=== PATIENT | female | born 1940 | race Caucasian/White ===

== ENCOUNTER → 2018-12-11 | Outpatient (CLI) | payer MEDICARE, BC ==
[~2018-12-11] MED LIST: /WARF25TA OR; ACTO30TA OR; ALPH0.156 OU; ATOR1TAB21 PO; BENZ200C70 PO; CALCTAB93 PO; CEFD300CAP PO; CELEBREX PO; CLONIDINE PO; COUM2.5T17 PO; COZAAR PO; FERR325T PO; FURO20TA2 PO; GLYBPOW PO; INSULANT SC; KLOR10TA76 PO; LABE20TAB PO; LABETALOL; LEXA1TAB PO; LEXAPRO PO; LIPITOR PO; LOSA50TA88 PO; METF10004 PO; METFORMIN PO; MULT1TAB10 PO; MULTLIQ7 PO; NEXIUM PO; NORV5TAB PO; NOVOINJ3 SC; OMEP20CA3 PO; PERC5TAB8 OR; PERC7.5T8 OR; POTA10TA16 PO; TIMO0.5S42 OU; TRAMADOL PO; TRIAMTERENE PO; TYLE325T5 PO; VITA-112 PO; VITA10006 PO; [UNRECOGNIZED DRUG - OTHER] PO; [UNRECOGNIZED DRUG - OTHER] PO; januvia
--- NOTE | 2018-12-11 14:03 | REP ---
Chest two views HISTORY: preop Comparison: 09/07/2016 A calcified granuloma are present in the right lower lobe. The left lung is clear. The cardiac silhouette is enlarged. The pulmonary vasculature is normal in appearance. There are old right rib fractures. The bony structure is intact. IMPRESSION: Cardiomegaly. Electronically Signed by Gordon Chu MD 12/11/2018 01:55 P
[2018-12-11 14:10] LABS: HEMATOCRIT 35.9 % (36.0-47.0); HEMOGLOBIN 11.4 g/dl (12.0-15.5); MEAN CORPUSCULAR HEMOGLOBIN 28.4 pg (27.0-33.0); MEAN CORPUSCULAR HGB CONC 31.8 g/dl (32.0-36.5); MEAN CORPUSCULAR VOLUME 89.5 fl (80.0-96.0); PLATELET COUNT, AUTOMATED 336 10^3/uL (150-450); RED BLOOD COUNT 4.01 10^6/uL (4.00-5.40); WHITE BLOOD COUNT 11.6 10^3/uL (4.0-10.0)
[2018-12-11 14:17] LABS: INR 0.99; PROTHROMBIN TIME 13.2 SECONDS (12.1-14.4)
[2018-12-11 14:29] LABS: ERYTHROCYTE SEDIMENTATION RATE 25 mm/hr (0-30)
[2018-12-11 14:37] LABS: ALBUMIN 3.3 GM/DL (3.2-5.2); CALCIUM LEVEL 8.9 MG/DL (8.8-10.2); CREATININE FOR GFR 1.39 MG/DL (0.55-1.30); GLOMERULAR FILTRATION RATE 38.9 (>39); POTASSIUM SERUM 4.1 MEQ/L (3.5-5.1); TOTAL PROTEIN 6.5 GM/DL (6.4-8.2)
== END ==
LOC: M LAB 13:07
PROVIDERS: ATTEND Orthopaedic Surgery
DX: Z01.818 Encounter for other preprocedural examination (principal); M16.11 Unilateral primary osteoarthritis, right hip; I51.7 Cardiomegaly

== ENCOUNTER 2019-01-08 06:04 | Inpatient (IN) | payer MEDICARE, BC ==
[~2019-01-08] VITALS: Ht 160 cm; Wt 88.5 kg
[2019-01-08] VITALS (7 sets, daily range): BP systolic 152–183; BP diastolic 80–86
[2019-01-08] MEDS ORDERED: CLINDAMYCIN 900 MG/50 ML PREMIX BAG As Ordered ONE (06:16)
[2019-01-08] MEDS ORDERED: PROPOFOL 200 MG/20 ML VIAL As Ordered ONE ×2 (06:20→06:21)
[2019-01-08] MEDS ORDERED: fentaNYL 100 MCG/2 ML INJECTION (J3010) As Ordered ONE (06:20)
[2019-01-08] MEDS ORDERED: LIDOCAINE 2% INJ 100 MG/5 ML SDV (FOR ANES.) As Ordered ONE (06:21)
[2019-01-08] MEDS ORDERED: EPINEPHrine INJ 1 MG/ML 1ML AMP As Ordered ONE (06:41)
[2019-01-08] MEDS ORDERED: CLINDAMYCIN INJ 900MG/6ML VIAL As Ordered ONE (06:41)
[2019-01-08] MEDS ORDERED: TRANEXAMIC ACID 100 MG/ML 10ML VIAL As Ordered ONE (06:41)
[2019-01-08] MEDS ORDERED: LEVAINH (06:43)
[2019-01-08] MEDS ORDERED: LEVO500T3 (06:43)
[2019-01-08] MEDS ORDERED: CLINDAMYCIN 900 MG in APPROPRIATE DILUENT 1 EA IV ONE (07:00)
--- NOTE | 2019-01-08 08:02 | IPN ---
DATE: 01/08/2019 The patient seen and examined. She wishes to go ahead with a right total hip arthroplasty. She understands the nature of this, the risks of bleeding, infection, damage to nerves, vessels, persistent pain, wear loosening, dislocation, leg length inequality, blood clots, medical problems, , among others. Preop clearance was obtained.
[2019-01-08] MEDS ORDERED: BUPIVACAINE/DEXTROSE 0.75% 2 ML AMP As Ordered ONE (08:10)
[2019-01-08] MEDS ORDERED: FUROSEMIDE 20 MG TAB PO SCH (09:00)
[2019-01-08] MEDS ORDERED: FLEET ENEMA PR PRN (09:30)
[2019-01-08] MEDS ORDERED: fentaNYL 100 MCG/2 ML INJECTION (J3010) IV PRN (09:30)
[2019-01-08] MEDS ORDERED: ONDANSETRON 4MG/2ML VIAL (J2405) IV PRN (09:30)
[2019-01-08] MEDS ORDERED: LR 1,000 ML IV SCH ×2 (09:30→09:45)
[2019-01-08] MEDS ORDERED: HYDROMORPHONE HCL 0.5 MG/ 0.5 ML SYRINGE (J1170 PER 1) IV PRN (09:30)
[2019-01-08] MEDS ORDERED: PERCOCET 5MG/325MG TAB PO PRN (09:30)
[2019-01-08] MEDS ORDERED: MORPHINE 4 MG/ML 1ML VIAL/SYRINGE (J2270) IV PRN ×3 (09:45→10:00)
--- NOTE | 2019-01-08 10:31 | REP ---
AP LATERAL RIGHT HIP, TWO VIEWS: HISTORY: Postop. The patient is status post right total hip replacement. There is no acute fracture or dislocation. Subcutaneous air and surgical tami are present in the overlying soft tissue. IMPRESSION: The patient is status post right total hip replacement. There is anatomic alignment. Electronically Signed by Gordon Chu MD 01/08/2019 10:36 A
[2019-01-08] MEDS ORDERED: DEXTROSE 50% 50 ML SYRINGE IV PRN (11:00)
[2019-01-08] MEDS ORDERED: GLUCOSE 4 GM CHEW TABLET PO PRN (11:00)
[2019-01-08] MEDS ORDERED: GLUCAGON FOR INJ 1 MG VIAL (J1610) SC PRN (11:00)
--- NOTE | 2019-01-08 11:07 | CR.PDOC ---
General Date of Consultation: Jan 08, 2019 Referring Provider: Isaias James Attending Physician: LADI SHORE MD Consultation HOSPITALIST CONSULT REASON FOR CONSULTATION/CHIEF COMPLAINT: medical management s/p rt KARLO HISTORY OF PRESENT ILLNESS: This is an 78 yo M who underwent right total hip arthroplasty today, 01/08/19, and Hospitalist was consulted for post-op medical management. She has OA and elected to undergo this surgery. No known complications during the procedure. She is examined in the recovery area and has no complaints. ALLERGIES: Please see below. HOME MEDICATIONS: Please see below. PAST MEDICAL HISTORY: 1. HLD 2. IDDM2 3. HTN 4. GERD 5. Osteoarthritis 6. Depression PAST SURGICAL HISTORY: 1. Cholecystectomy. 2. Bilateral carpal tunnel release. 3. Knee replacements. 4. Left breast biopsy. 5. Trigger finger A1 tierra release. 6. Left & Right hip replacement. FAMILY HISTORY: noncontributory SOCIAL HISTORY: Tobacco use:denies ETOH: denies Illicit drug use: denies IV drug use: denies Lives at home with boyfriend REVIEW OF SYSTEMS: Constitutional: Denies fever, chills Eyes: Denies eye pain, vision change ENT: Denies headaches, ear pain, dysphagia Skin: Denies any rashes or lesions Pulmonary: Denies dyspnea, cough, wheezing Cardiac: Denies chest pain, palpitations GI: Denies nausea, vomiting, abdominal pain MSK: Denies other pains besides OA and from recent surgery Neurologic: Denies weakness, numbness/tingling PHYSICAL EXAMINATION: VITAL SIGNS: Please see below. General exam: Alert and cooperative, A&O 3, NAD, pleasantly conversant Eye exam: PERRLA, EOMI ENT: Atraumatic, normocephalic, mucus membranes moist, tongue midline, no pharyngeal edema Neck: Supple, no JVD Cardiac: RRR, normal S1 & S2, no murmurs Respiratory: CTAB, good air exchange, no wheezing, rhonchi, or rales Abdomen: hypoactive bowel sounds, soft, nontender, nondistended Extremity: 2+ radial pulses, no edema, clubbing, cyanosis, or tenderness Skin: [place], warm, dry, no visible rash or lesions, no jaundice. Rt hip region is bandaged from recent surgery Neuro: Strength in UE 5/5, limited motion in LE given recent surgery, sensation intact, normal speech Psych: Normal mood and affect LABORATORY DATA: Please see below. ASSESSMENT/PLAN: 1. S/P rt KARLO done 01/08/19. Pain management, activity, and DVT ppx as per surgery. Will place pt on fall precautions. 2. HLD-continue home statin 3. IDDM2- home metformin and insulins replaced with ISS. Recommend consistent carb diet once pt is tolerating intake. 4. HTN- continue home regimen: Cozaar and Lebatolol with hold parameters. Will hold Lasix as she is currently on fluids 5. GERD- controlled on home Omeprazole, which we will continue 6. Depression-stable, continue home Lexapro 7. Recent PNA-pt was started on Levaquin last Saturday by Urgent care, has 3 doses remaining. She is on Clindamycin already per Ortho, and will allow her to complete her 3 doses of Levaquin. Vital Signs/I&O Vital Signs Date Time Temp Pulse Resp B/P (MAP) Pulse Ox O2 Delivery O2 Flow Rate FiO2 01/08/19 10:04 73 20 158/67 (97) 92 Room Air 01/08/19 09:21 97 Laboratory Data Labs 24H Laboratory Tests 2 01/08/19 09:49: Bedside Glucose (Misc Panel) 179H CBC/BMP Laboratory Tests 01/08/19 06:17 Allergies Coded Allergies: Penicillins (Verified Allergy, Severe, SEVERE RASH, 03/04/13) Penicillins Cross Reactors (Verified Allergy, Severe, SEVERE RASH, 03/04/13) Sulfa Drugs (Verified Allergy, Intermediate, RASH, 03/04/13) Sulfa Drugs Cross Reactors (Verified Allergy, Intermediate, RASH, 03/04/13) Thiopental (Verified Adverse Reaction, Intermediate, THRASHES, 12/09/18) SODIUM PENTOTHAL Home Medications Scheduled Ascorbic Acid (Vitamin C) 1,000 Mg Tab, 1,000 MG PO DAILY, (Reported) Atorvastatin Calcium (Atorvastatin Calcium) 20 Mg Tab, 20 MG PO DAILY, (Reported) Brimonidine Tartrate 0.15% (Alphagan P) 0.15 % Luisa, 1 DROP OU BID, (Reported) Cefdinir (Cefdinir) 300 Mg Cap, 300 MG PO Q12H, (Reported) Cholecalciferol (Vitamin D-1000) 1,000 Unit Tab, 2,000 UNIT PO DAILY, (Reported) Escitalopram Oxalate (Lexapro) 10 Mg Tab, 10 MG PO DAILY, (Reported) Escitalopram Oxalate (Lexapro) 10 Mg Tab, 10 MG PO DAILY, (Reported) Furosemide (Furosemide) 20 Mg Tab, 20 MG PO DAILY, (Reported) Insulin Aspart (Novolog Flexpen) 100 Unit/Ml Inj, 14 UNITS SC TID, (Reported) SLIDING SCALE AVERAGE Insulin Glargine (Lantus) 1 Units/0.01 Ml Susp, 32 UNITS SC QHS, (Reported) Labetalol HCl (Labetalol HCl) 200 Mg Tab, 200 MG PO DAILY, (Reported) Losartan Potassium (Losartan Potassium) 50 Mg Tab, 50 MG PO DAILY, (Reported) Metformin Hydrochloride (Metformin HCl) 1,000 Mg Tab, 1,000 MG PO BID, (Reported) Multivitamins (Multivitamin Adults) 1 Tab Tab, 1 TAB PO DAILY, (Reported) Omeprazole (Omeprazole) 20 Mg Cap, 20 MG PO DAILY, (Reported) Potassium Chloride (Potassium Chloride ER) 10 Meq Tab, 20 MEQ PO DAILY, (Reported) Timolol Maleate (Timoptic) 0.5 % Luisa, 1 DROP OU BID, (Reported) Scheduled PRN Acetaminophen (Tylenol) 325 Mg Tab, 650 MG PO PRN PRN for PAIN, (Reported) Benzonatate (Benzonatate) 200 Mg Cap, 200 MG PO TID PRN for COUGH, #30 (Reported) MDD 3 Miscellaneous Medications Levalbuterol Tartrate (Xopenex Hfa) 45 Mcg/Act Aer, (Reported) Levofloxacin Hemihydrate (Levofloxacin) 500 Mg Tab, (Reported) GME ATTESTATION GME ATTESTATION My faculty preceptor for this patient encounter was physically present during the encounter and was fully available. All aspects of the patient interview, examination, medical decision making process, and medical care plan development were reviewed and approved by the faculty preceptor. The faculty preceptor is aware and concurs with the plan as stated in the body of this note and will attest to such by his/her cosignature. LUIS ANGEL MASON DO Jan 08, 2019 10:15
[2019-01-08] MEDS ORDERED: MIDAZOLAM INJ 2 MG/2 ML VIAL (J2250) As Ordered ONE (12:12)
[2019-01-08] MEDS: ATORVASTATIN 20 MG TAB PO SCH (12:13)
[2019-01-08] MEDS: HumaLOG INSULIN (NovoLOG) PER UNIT SC SCH ×3 (12:13→21:02)
[2019-01-08] MEDS: PERCOCET 5MG/325MG TAB PO PRN ×2 (12:29→20:55)
[2019-01-08] MEDS: ONDANSETRON 4MG/2ML VIAL (J2405) IV PRN (13:27)
--- NOTE | 2019-01-08 16:17 | RO ---
DATE OF PROCEDURE: PREOPERATIVE DIAGNOSIS: Right hip osteoarthritis. POSTOPERATIVE DIAGNOSIS: Right hip osteoarthritis. OPERATIVE PROCEDURE: Right total hip arthroplasty using a Rains size 7 standard +1.5 36 ball, 52 cup. SURGEON: Isaias James MD NURSING SERVICE DIRECTOR: KATHRYN John ANESTHESIA: Spinal ESTIMATED BLOOD LOSS: 200 mL COMPLICATIONS: None. INDICATIONS: 77-year-old woman who has had gradually worsening right hip pain. She wished to proceed with a right hip replacement. She has done well with a left hip replacement and she understood the nature of this; the risks of bleeding, infection, damage to nerves, vessels, persistent pain, wear, loosening, dislocation, leg length inequality, blood clots, medical problems, among others. She had several conservative things done with this hip including intra-articular injections, trochanteric bursal injections, it was not able to tolerate the pain. DESCRIPTION OF PROCEDURE: The patient was taken to the operating room and placed in the left lateral decubitus position on the [place] positioner. All areas were padded appropriately. Spinal anesthesia had been induced. The right hip was prepped and draped in the usual sterile fashion. A time-out was performed. A created a longitudinal incision over the lateral aspect of the hip. She had copious amounts of subcutaneous tissue and had some difficulty getting down to the fascia to identify this layer which was then incised. I then divided the anterior 40% of the abductor off of the hip and femur gradually externally rotating this and exposing the neck. I was able to dislocate the hip with the assistant sales director's help with some difficulty. I then used the canal initiating reamer followed by the canal finding reamer, lateralizing reamer and then sequentially reamed up to a size 7 and had good bony purchase with this reamer. I cut the neck off about three-quarters of a fingerbreadth up from the lesser trochanter. The ball was removed. She had severe arthritis of the femoral head and acetabulum. I then exposed the acetabulum. Anterior and posterior retractor were placed. Soft tissues removed from around the acetabulum. It was evident that I did not have to deepen the reamings very far. I sequentially reamed up to 51 which had excellent concentric reaming and bleeding bone. No cysts were noted. I then packed in the 52 cup in the appropriate amount of anteversion and horizontal tilt. The cup was again irrigated as I had prior to placement of the component and the polyethylene was placed, a 36 x 52, impacted this in place and made sure it was well seated. Directed our attention back to the femur and I sequentially broached up to a size 7, which had an excellent fit and fill. It was a couple millimeters proud above the cut, but I was very pleased with the position and the alignment of this. I then trialed off this and was able to use a 1.5 standard which had excellent fit and excellent stability. I had removed some osteophytes off the anterior aspect of the acetabulum. There was no impingement and she was very stable in extension, external rotation, flexion internal rotation and there was minimal shuck in full extension. I was very pleased with these components. This was actually the same size as we used on the contralateral side per my previous operative note. The trial components were removed. I irrigated, placed the actual size 7 standard stem, the 1.5 36 ball, impacted this in place over dry taper, made sure it was well seated. We reduced the hip with the assistant sales director's help and again I put the hip through range of motion and I was very pleased with the stability and position. I then copiously irrigated, used TXA solution, repaired the deep layer with #1 Vicryl suture and the abductor with #1 Vicryl suture. Several stitches being placed through bone, then repaired the fascia nicole with #1 Vicryl suture in a running Stratafix in both directions obtaining a watertight closure. I then irrigated again, closed the subcutaneous with two layers with #2-0 Vicryl due to the depth the subcutaneous tissue. Victor were applied. Sterile dressing was applied. She was taken to the recovery room in stable condition. There were no known complications. This is coded as an unusually difficult procedure due to the patient's morbid obesity and significant amount of subcutaneous fat which added to the length of procedure, made the procedure much more difficult. Also increases her complication risk. The assistant sales director was instrumental in holding retractors and assisting in reducing and dislocating the hip and assisting in wound closure.
[2019-01-08] MEDS: CLINDAMYCIN 900 MG in APPROPRIATE DILUENT 1 EA IV SCH (16:29)
[2019-01-08] MEDS: BRIMONIDINE 0.15% OPHTH SOLN 5 ML OU SCH (20:56)
[2019-01-08] MEDS: TIMOLOL MALEATE 0.5% OPHTH SOLN 5 ML OU SCH (20:56)
[2019-01-09] MEDS: CLINDAMYCIN 900 MG in APPROPRIATE DILUENT 1 EA IV SCH (01:25)
[2019-01-09 02:00] VITALS: BP 128/74
[2019-01-09] MEDS: PERCOCET 5MG/325MG TAB PO PRN ×2 (04:03→17:53)
[2019-01-09] MEDS: LevoFLOXacin 250 MG TABLET PO SCH (05:16)
[2019-01-09 06:00] VITALS: BP 152/84
[2019-01-09] MEDS ORDERED: LevoFLOXacin 500 MG TABLET PO SCH (06:00)
[2019-01-09 07:02] LABS: HEMOGLOBIN 10.3 g/dl (12.0-15.5); MEAN CORPUSCULAR HEMOGLOBIN 28.1 pg (27.0-33.0); MEAN CORPUSCULAR HGB CONC 30.3 g/dl (32.0-36.5); MEAN CORPUSCULAR VOLUME 92.9 fl (80.0-96.0); PLATELET COUNT, AUTOMATED 225 10^3/uL (150-450); RED BLOOD COUNT 3.66 10^6/uL (4.00-5.40); WHITE BLOOD COUNT 13.2 10^3/uL (4.0-10.0)
[2019-01-09 07:21] LABS: CALCIUM LEVEL 8.7 MG/DL (8.8-10.2); CREATININE FOR GFR 1.58 MG/DL (0.55-1.30); GLOMERULAR FILTRATION RATE 33.5 (>32); POTASSIUM SERUM 3.5 MEQ/L (3.5-5.1)
[2019-01-09] MEDS: OMEPRAZOLE 20 MG CAP PO SCH (08:05)
[2019-01-09] MEDS: ASCORBIC ACID 500 MG TAB PO SCH (08:05)
[2019-01-09] MEDS: MOM 30ML SUSPENSION UDC PO SCH (08:05)
[2019-01-09] MEDS: VITAMIN D 1,000 INTERNATIONAL UNITS TABLET PO SCH (08:05)
[2019-01-09] MEDS: ESCITALOPRAM OXALATE 10 MG TAB (LEXAPRO) PO SCH (08:05)
[2019-01-09] MEDS: MULTIVITAMINS/MINERALS THERAP 1 TAB PO SCH (08:06)
[2019-01-09] MEDS: ATORVASTATIN 20 MG TAB PO SCH (08:06)
[2019-01-09] MEDS: LABETALOL 200 MG TAB PO SCH (08:07)
[2019-01-09] MEDS: SENOKOT S TAB PO SCH ×2 (08:07→22:48)
[2019-01-09] MEDS: HumaLOG INSULIN (NovoLOG) PER UNIT SC SCH ×4 (08:07→22:52)
[2019-01-09] MEDS: MIRALAX *UNIT DOSE* 17GM PACKET PO SCH (08:07)
[2019-01-09] MEDS: BRIMONIDINE 0.15% OPHTH SOLN 5 ML OU SCH ×2 (08:08→22:48)
[2019-01-09] MEDS: TIMOLOL MALEATE 0.5% OPHTH SOLN 5 ML OU SCH ×2 (08:08→22:48)
--- NOTE | 2019-01-09 08:12 | IPN ---
DATE: 01/09/2019 CHIEF COMPLAINT: Postoperative day 1 right total hip arthroplasty. HISTORY OF PRESENT ILLNESS: This is a an 78-year-old female who was seen today postoperative day 1 from a right total hip arthroplasty. She is doing well. No concerns. I was asked to see this patient for Dr. James today. No chest pain, shortness of breath, or other constitutional symptoms. Vital signs today: Temperature 98.4, blood pressure 152/94, pulse rate 85, pulse ox 88% on room air, respiratory rate 18. PHYSICAL EXAMINATION: Bulky dressing is in site. The thigh compartment is soft. Both the lower extremities appear normal. Both feet are warm and well perfused. They have good pedal pulses. She is able to wiggle her toes. Dorsiflexion and plantar flexion of her foot on both sides. Laboratory examination revealed her hemoglobin to be 10.3. Unknown prior to this. Chemistries: Electrolytes appear normal. Her creatinine is elevated at 1.58 as well as her fasting glucose appears to be trending upward at 253 this morning. ASSESSMENT/PLAN: This 78-year-old female who is now postoperative day 1 from total hip arthroplasty on the right side. We encouraged her to mobilize. We encouraged deep breathing. She is on Xarelto 10 by mouth once daily for venous thromboembolism (VTE) prophylaxis. We will see how things go with physical therapy (PT) and occupational therapy) to mobilize her. Weightbearing as tolerated. MTDD
[2019-01-09] MEDS ORDERED: XARE10TA PO (08:38)
[2019-01-09] MEDS ORDERED: PERC5TAB12 PO (08:38)
[2019-01-09] MEDS ORDERED: LOSARTAN 50 MG TAB PO SCH (09:00)
[2019-01-09] MEDS: ONDANSETRON 4MG/2ML VIAL (J2405) IV PRN (09:55)
[2019-01-09 10:00] VITALS: BP 124/58
--- NOTE | 2019-01-09 10:11 | IPNPDOC ---
Date Seen The patient was seen on 01/09/19. Progress Note HOSPITALIST PROGRESS NOTE SUBJECTIVE: Ms. Galaviz is examined sitting up in chair in her room, with daughter in room. She feels slightly nauseous, otherwise is feeling well and in good spirits. No f/c/abd pain/v/changes in bowel habits. Is working with PT & OT. PHYSICAL EXAMINATION: VITAL SIGNS: Please see below. General exam: Alert and cooperative, A&O 3, NAD, pleasantly conversant Eye exam: PERRLA, EOMI ENT: Atraumatic, normocephalic, mucus membranes moist, tongue midline, no pharyngeal edema Neck: Supple, no JVD Cardiac: RRR, normal S1 & S2, no murmurs Respiratory: CTAB, good air exchange, no wheezing, rhonchi, or rales Abdomen: normal bowel sounds, soft, nontender, nondistended Extremity: 2+ radial & dp pulses, no edema, clubbing, cyanosis, or tenderness MSK: Strength in UE 5/5, 4/5 rt LW from recent surgery. Is able to wiggle toes and move legs, although limited ROM from recent surgery Skin: [place], warm, dry, no visible rash or lesions, no jaundice. Rt hip region under a a dry and intact dressing Neuro: sensation intact, normal speech Psych: Normal mood and affect LABORATORY DATA: Please see below. ASSESSMENT/PLAN: 1. S/P rt KARLO done 01/08/19. Pt is doing well today. Continue pain management, activity, and DVT ppx as per surgery. Continue fall precautions. Encouraged to use IS continue PT & OT. 2. Leukocytosis. Likely reactionary to recent surgery. Pt continues to be afebrile and clinically improving. Monitor. 3. CKD III. It apoears she is at her baseline GFR & Cr. Avoid nephrotoxins. Renal fxn stable today. HLD-continue home statin IDDM2- home metformin and insulins replaced with ISS. On consistent carb diet, tolerating well. HTN- continue home regimen: Cozaar and Lebatolol with hold parameters. May resume Lasix once off fluids. Renal fxn appears to be at baseline today. GERD- controlled on home Omeprazole, which we will continue Depression-stable, continue home Lexapro Recent PNA-pt was started on Levaquin last Saturday by Urgent care. Last dose tomorrow. VS, I&O, 24H, Fishbone Vital Signs/I&O Vital Signs Date Time Temp Pulse Resp B/P (MAP) Pulse Ox O2 Delivery O2 Flow Rate FiO2 01/09/19 08:07 152/84 01/09/19 08:07 85 01/09/19 06:00 98.4 18 88 01/08/19 10:58 Nasal Cannula 3 I&O- Last 24 Hours up to 6 AM 01/09/19 06:00 Intake Total 3820 ml Output Total 1000 ml Balance 2820 ml Laboratory Data 24H LABS Laboratory Tests 2 01/08/19 11:48: Bedside Glucose (Misc Panel) 177H 01/08/19 16:22: Bedside Glucose (Misc Panel) 237H 01/08/19 20:59: Bedside Glucose (Misc Panel) 284H 01/09/19 06:03: Nucleated Red Blood Cells % (auto) 0.0, Anion Gap 8, Glomerular Filtration Rate 33.5, Blood Urea Nitrogen 25H, Creatinine 1.58H, Sodium Level 139, Potassium Level 3.5, Chloride Level 103, Carbon Dioxide Level 28, Calcium Level 8.7L CBC/BMP Laboratory Tests 01/09/19 06:03 Red Blood Count 3.66 L, Mean Corpuscular Volume 92.9, Mean Corpuscular Hemoglobin 28.1, Mean Corpuscular Hemoglobin Concent 30.3 L, Red Cell Distribution Width 13.9, Calcium Level 8.7 L GME ATTESTATION GME ATTESTATION My faculty preceptor for this patient encounter was physically present during the encounter and was fully available. All aspects of the patient interview, examination, medical decision making process, and medical care plan development were reviewed and approved by the faculty preceptor. The faculty preceptor is aware and concurs with the plan as stated in the body of this note and will attest to such by his/her cosignature. LUIS ANGEL MASON DO Jan 09, 2019 10:11
--- NOTE | 2019-01-09 12:30 | DSES ---
DATE OF ADMISSION: 01/08/2019 DATE OF DISCHARGE: ATTENDING PHYSICIAN: Dr. Isaias James ADMISSION DIAGNOSIS: Osteoarthritis right hip. OTHER DIAGNOSES: Hypertension. Hyperlipidemia. Diabetes. Constipation. Gastroesophageal reflux disease. Depression. Glaucoma. DISCHARGE DIAGNOSIS: Osteoarthritis arthritis of the right hip status post right total hip arthroplasty. OPERATION PERFORMED: Right total hip arthroplasty. HISTORY: This is an 78-year-old female patient with progressively worsening right hip pain and stiffness who failed to improve with conservative management. She was admitted for elective right hip replacement. HOSPITAL COURSE: The patient was admitted on the day of surgery and underwent a right total hip arthroplasty which was uneventful. She did well in the postoperative period and hospital course was without complications. She was up with physical therapy per their protocol and pain was controlled. On the day of discharge she was doing well weightbearing as tolerated on the right lower extremity. She will resume her preoperative medications and diet along with oral pain medications for pain control. She will use follow deep venous thrombosis (DVT) prophylaxis protocol for 30 days postoperatively. She was given instructions to include but not limited to wound monitoring activity limitations. She will followup in our office in 10-14 days for surgical followup. Please refer to the medical record for further information.
[2019-01-09 14:00] VITALS: BP 137/63
[2019-01-09] MEDS: RIVAROXABAN 10 MG TAB (XARELTO) PO SCH (17:49)
[2019-01-09 22:00] VITALS: BP 134/62
[2019-01-10] MEDS: PERCOCET 5MG/325MG TAB PO PRN ×2 (03:34→14:38)
[2019-01-10] MEDS: LevoFLOXacin 250 MG TABLET PO SCH (05:35)
[2019-01-10 06:00] VITALS: BP 157/69
[2019-01-10 06:22] LABS: HEMATOCRIT 29.3 % (36.0-47.0); HEMOGLOBIN 9.3 g/dl (12.0-15.5); MEAN CORPUSCULAR HEMOGLOBIN 28.5 pg (27.0-33.0); MEAN CORPUSCULAR HGB CONC 31.7 g/dl (32.0-36.5); MEAN CORPUSCULAR VOLUME 89.9 fl (80.0-96.0); PLATELET COUNT, AUTOMATED 216 10^3/uL (150-450); RED BLOOD COUNT 3.26 10^6/uL (4.00-5.40); WHITE BLOOD COUNT 14.4 10^3/uL (4.0-10.0)
[2019-01-10 06:41] LABS: CALCIUM LEVEL 8.7 MG/DL (8.8-10.2); CREATININE FOR GFR 1.72 MG/DL (0.55-1.30); GLOMERULAR FILTRATION RATE 30.4 (>32); POTASSIUM SERUM 3.6 MEQ/L (3.5-5.1)
[2019-01-10] MEDS ORDERED: XARE10TA PO (07:07)
[2019-01-10] MEDS: LABETALOL 200 MG TAB PO SCH (09:50)
[2019-01-10] MEDS: ASCORBIC ACID 500 MG TAB PO SCH (09:51)
[2019-01-10] MEDS: SENOKOT S TAB PO SCH ×2 (09:52→22:26)
[2019-01-10] MEDS: ESCITALOPRAM OXALATE 10 MG TAB (LEXAPRO) PO SCH (09:52)
[2019-01-10] MEDS: MULTIVITAMINS/MINERALS THERAP 1 TAB PO SCH (09:53)
[2019-01-10] MEDS: VITAMIN D 1,000 INTERNATIONAL UNITS TABLET PO SCH (09:53)
[2019-01-10] MEDS: OMEPRAZOLE 20 MG CAP PO SCH (09:53)
[2019-01-10] MEDS: ATORVASTATIN 20 MG TAB PO SCH (09:53)
[2019-01-10] MEDS: HumaLOG INSULIN (NovoLOG) PER UNIT SC SCH ×4 (09:54→22:26)
[2019-01-10] MEDS: BRIMONIDINE 0.15% OPHTH SOLN 5 ML OU SCH ×2 (09:56→22:27)
[2019-01-10] MEDS: TIMOLOL MALEATE 0.5% OPHTH SOLN 5 ML OU SCH ×2 (09:56→22:27)
[2019-01-10] MEDS: MIRALAX *UNIT DOSE* 17GM PACKET PO SCH (10:03)
[2019-01-10] MEDS: MOM 30ML SUSPENSION UDC PO SCH (10:03)
[2019-01-10 14:00] VITALS: BP 127/56
[2019-01-10] MEDS: RIVAROXABAN 10 MG TAB (XARELTO) PO SCH (17:35)
[2019-01-10] MEDS: FUROSEMIDE 20 MG TAB PO SCH (17:50)
[2019-01-10 22:00] VITALS: BP 132/70
[2019-01-11] MEDS: PERCOCET 5MG/325MG TAB PO PRN (01:12)
[2019-01-11 06:00] VITALS: BP 154/63
[2019-01-11 06:28] LABS: HEMATOCRIT 28.1 % (36.0-47.0); HEMOGLOBIN 9.1 g/dl (12.0-15.5); MEAN CORPUSCULAR HEMOGLOBIN 28.3 pg (27.0-33.0); MEAN CORPUSCULAR HGB CONC 32.4 g/dl (32.0-36.5); MEAN CORPUSCULAR VOLUME 87.5 fl (80.0-96.0); PLATELET COUNT, AUTOMATED 224 10^3/uL (150-450); RED BLOOD COUNT 3.21 10^6/uL (4.00-5.40)
[2019-01-11 06:52] LABS: CALCIUM LEVEL 8.6 MG/DL (8.8-10.2); CREATININE FOR GFR 1.69 MG/DL (0.55-1.30)
[2019-01-11] MEDS: ASCORBIC ACID 500 MG TAB PO SCH (10:02)
[2019-01-11] MEDS: ESCITALOPRAM OXALATE 10 MG TAB (LEXAPRO) PO SCH (10:02)
[2019-01-11] MEDS: ATORVASTATIN 20 MG TAB PO SCH (10:02)
[2019-01-11] MEDS: BRIMONIDINE 0.15% OPHTH SOLN 5 ML OU SCH ×2 (10:03→21:04)
[2019-01-11] MEDS: FUROSEMIDE 20 MG TAB PO SCH (10:03)
[2019-01-11] MEDS: SENOKOT S TAB PO SCH ×2 (10:03→21:00)
[2019-01-11] MEDS: TIMOLOL MALEATE 0.5% OPHTH SOLN 5 ML OU SCH ×2 (10:03→21:04)
[2019-01-11] MEDS: HumaLOG INSULIN (NovoLOG) PER UNIT SC SCH ×4 (10:04→21:03)
[2019-01-11] MEDS: VITAMIN D 1,000 INTERNATIONAL UNITS TABLET PO SCH (10:20)
[2019-01-11] MEDS: MULTIVITAMINS/MINERALS THERAP 1 TAB PO SCH (10:20)
[2019-01-11] MEDS: MIRALAX *UNIT DOSE* 17GM PACKET PO SCH (10:20)
[2019-01-11] MEDS: MOM 30ML SUSPENSION UDC PO SCH (10:20)
[2019-01-11] MEDS: OMEPRAZOLE 20 MG CAP PO SCH (10:20)
[2019-01-11] MEDS: LABETALOL 200 MG TAB PO SCH (10:30)
[2019-01-11] MEDS: ACETAMINOPHEN TAB 650MG DOSE (2X325MG) PO PRN ×2 (13:35→21:04)
[2019-01-11 14:00] VITALS: BP 130/60
[2019-01-11] MEDS: RIVAROXABAN 10 MG TAB (XARELTO) PO SCH (17:54)
[2019-01-11 22:00] VITALS: BP 144/66
[2019-01-12 06:00] VITALS: BP 143/74
[2019-01-12 06:21] LABS: HEMATOCRIT 29.4 % (36.0-47.0); HEMOGLOBIN 9.6 g/dl (12.0-15.5); MEAN CORPUSCULAR HEMOGLOBIN 28.4 pg (27.0-33.0); MEAN CORPUSCULAR HGB CONC 32.7 g/dl (32.0-36.5); PLATELET COUNT, AUTOMATED 242 10^3/uL (150-450); RED BLOOD COUNT 3.38 10^6/uL (4.00-5.40); WHITE BLOOD COUNT 13.2 10^3/uL (4.0-10.0)
[2019-01-12] MEDS: ACETAMINOPHEN TAB 650MG DOSE (2X325MG) PO PRN (06:27)
[2019-01-12 06:42] LABS: CALCIUM LEVEL 8.6 MG/DL (8.8-10.2); CREATININE FOR GFR 1.32 MG/DL (0.55-1.30); GLOMERULAR FILTRATION RATE 41.2 (>32); POTASSIUM SERUM 4.7 MEQ/L (3.5-5.1)
[2019-01-12] MEDS ORDERED: LEVALBUTEROL 1.25 MG/0.5 ML CONCENTRATE NEB INH PRN (07:00)
[2019-01-12] MEDS ORDERED: LEVALBUTEROL 1.25 MG/0.5 ML CONCENTRATE NEB INH SCH (08:00)
[2019-01-12] MEDS: TIMOLOL MALEATE 0.5% OPHTH SOLN 5 ML OU SCH (08:52)
[2019-01-12] MEDS: BRIMONIDINE 0.15% OPHTH SOLN 5 ML OU SCH (08:52)
[2019-01-12] MEDS: OMEPRAZOLE 20 MG CAP PO SCH (08:53)
[2019-01-12] MEDS: ATORVASTATIN 20 MG TAB PO SCH (08:53)
[2019-01-12] MEDS: VITAMIN D 1,000 INTERNATIONAL UNITS TABLET PO SCH (08:53)
[2019-01-12] MEDS: FUROSEMIDE 20 MG TAB PO SCH (08:53)
[2019-01-12] MEDS: MULTIVITAMINS/MINERALS THERAP 1 TAB PO SCH (08:53)
[2019-01-12] MEDS: ASCORBIC ACID 500 MG TAB PO SCH (08:53)
[2019-01-12 08:54] VITALS: BP 143/74
[2019-01-12] MEDS: HumaLOG INSULIN (NovoLOG) PER UNIT SC SCH (08:54)
[2019-01-12] MEDS: LABETALOL 200 MG TAB PO SCH (08:54)
[2019-01-12] MEDS: ESCITALOPRAM OXALATE 10 MG TAB (LEXAPRO) PO SCH (08:54)
[2019-01-12] MEDS: SENOKOT S TAB PO SCH (08:55)
[2019-01-12] MEDS: MOM 30ML SUSPENSION UDC PO SCH (08:55)
[2019-01-12] MEDS: MIRALAX *UNIT DOSE* 17GM PACKET PO SCH (08:55)
== END 2019-01-12 10:38 | DRG 470 ==
LOC: M OR 06:04 → M MS5PR 11:28
PROVIDERS: ADMIT Orthopaedic Surgery; ATTEND Orthopaedic Surgery
PROC: 0SR902Z Replacement of Right Hip Joint with Metal on Polyethylene Synthetic Substitute, Open Approach (ICD-10-PCS; principal; 2019-01-08 07:30)
DX: M16.11 Unilateral primary osteoarthritis, right hip (principal); E66.01 Morbid (severe) obesity due to excess calories; E78.5 Hyperlipidemia, unspecified; E11.9 Type 2 diabetes mellitus without complications; I12.9 Hypertensive chronic kidney disease with stage 1 through stage 4 chronic kidney disease, or unspecified chronic kidney disease; K21.9 Gastro-esophageal reflux disease without esophagitis; N18.3 Chronic kidney disease, stage 3 (moderate); K59.00 Constipation, unspecified; H40.9 Unspecified glaucoma; F32.9 Major depressive disorder, single episode, unspecified; Z68.34 Body mass index [BMI] 34.0-34.9, adult; Z96.653 Presence of artificial knee joint, bilateral; Z79.4 Long term (current) use of insulin; Z79.899 Other long term (current) drug therapy

== ENCOUNTER → 2020-08-11 | Outpatient (CLI) | payer MEDICARE, BC ==
[~2020-08-11] MED LIST changes: -/WARF25TA OR; +COUM1TAB18 OR; +LEVAINH; +LEVO500T3; -LEXAPRO PO; +METHACHOLINE KIT (J7674) INH ONE; +OMEP1CAP73 PO; -OMEP20CA3 PO; +PERC5TAB12 PO; +XARE10TA PO
--- NOTE | 2020-08-11 13:35 | PFTRPT ---
Height: 63.50 Inches Weight: 205.00 Lbs BSA: 1.97 Diagnosis: R06.02 DATE OF STUDY: 08/11/2020 ORDERING PHYSICIAN: Dr. Mehta Pre and post bronchodilator therapy have excellent technical quality. Forced vital capacity is reduced. FEV1 proportionate with adequate exchange normal. Flow volume loop does suggest some degree of flow rate limitation. No significant bronchodilator response identified. Total lung capacity moderately reduced. Residual volume is generally in proportion. Diffusion capacity is significantly reduced but is appropriate for alveolar volume. Hemoglobin quite reduced at 9.3. Airway resistance and conductance are normal. IMPRESSION: Mild restrictive ventilatory impairment. Diffusion capacity impaired with concomitant anemia. Please correlate clinically. MTDD
== END ==
LOC: M CARPUL 12:47
PROVIDERS: ATTEND Internal Medicine Pulmonary Disease
DX: R06.02 Shortness of breath (principal)

== ENCOUNTER → 2020-08-23 | Outpatient (CLI) | payer MEDICARE, BC ==
--- NOTE | 2020-08-23 13:32 | PFTRPT ---
Visit Date: 08/23/2020 Second ID: [id number] Referring Doctor: Yinka Mehta MD Height: 63.50 Inches Weight: 200.00 Lbs BSA: 1.94 Diagnosis: R06.02 QUALITY: Study of excellent technical quality. PROCEDURE: Under protocol, methacholine was administered. At a dose of 2.5 mg, or 13.875 CDUs, a 22% decline of the FEV1 was noted. PC of 1.34 is significant. Flow rates did return to baseline post-bronchodilator administration. IMPRESSION: Positive methacholine challenge study. MTDD
== END ==
LOC: M CARPUL 12:40
PROVIDERS: ATTEND Internal Medicine Pulmonary Disease
DX: R06.02 Shortness of breath (principal)
CPT/HCPCS: 94070; 95070; J7674

== ENCOUNTER → 2020-09-21 | Outpatient (CLI) | payer MEDICARE, BC ==
[~2020-09-21] MED LIST changes: -METHACHOLINE KIT (J7674) INH ONE
[2020-09-21 18:26] LABS: COLLAGEN EPINEPHRINE 132 SECONDS (74-162)
[2020-09-21 18:27] LABS: PLATELET COUNT, AUTOMATED 304 10^3/uL (150-450)
[2020-09-21 18:32] LABS: INR 0.99; PROTHROMBIN TIME 13.3 SECONDS (12.5-14.3)
[2020-09-21 18:33] LABS: PARTIAL THROMBOPLASTIN TIME 26.2 SECONDS (24.2-38.5)
== END ==
LOC: M WUC 16:03
PROVIDERS: ATTEND Physician Assistant
DX: Z01.812 Encounter for preprocedural laboratory examination (principal); Z20.828 Contact with and (suspected) exposure to other viral communicable diseases
CPT/HCPCS: 36415; 85027; 85576; 85610; 85730; U0003

== ENCOUNTER → 2020-09-21 | Outpatient (CLI) | payer MEDICARE, BC | LOC: M LABSMTC 12:23 | PROVIDERS: ATTEND Physical Medicine & Rehabilitation | DX: Z01.812 Encounter for preprocedural laboratory examination (principal); Z20.828 Contact with and (suspected) exposure to other viral communicable diseases ==

== ENCOUNTER → 2020-11-16 | Outpatient (CLI) | payer MEDICARE, BC | LOC: M LABSMTC 11:39 | PROVIDERS: ATTEND Physical Medicine & Rehabilitation | DX: Z01.812 Encounter for preprocedural laboratory examination (principal); Z20.828 Contact with and (suspected) exposure to other viral communicable diseases ==